=== PATIENT | female | born 2000 | race Caucasian/White ===

== ENCOUNTER 2022-06-19 03:39 | Emergency (ER) | payer OTHER ==
[~2022-06-19] VITALS: Ht 170.2 cm; Wt 84.8 kg
[2022-06-19 04:08] VITALS: BP 120/86
[2022-06-19] MEDS ORDERED: ACETAMINOPHEN ES 500 MG TABLET ONE (04:13)
--- NOTE | 2022-06-19 04:21 | NUR ---
Patient discharged to home in stable condition. Written and verbal after care instructions given. Patient verbalizes understanding of instruction. Pt ambulatory with a steady gait
[2022-06-19] MEDS ORDERED: ACETAMINOPHEN ES 500 MG TABLET PO ONE (04:30)
== END 2022-06-19 04:34 | disposition home or self-care (01) ==
LOC: ER 04:27
DX: S09.90XA Unspecified injury of head, initial encounter (principal); W22.8XXA Striking against or struck by other objects, initial encounter; Y93.89 Activity, other specified; Y92.89 Other specified places as the place of occurrence of the external cause; Y99.8 Other external cause status